=== PATIENT | female | born 1995 | race Caucasian/White ===

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

== ENCOUNTER 2024-09-05 09:30 | Emergency (ER) | payer OTHER, BC ==
[2024-09-05 10:56] VITALS: BP 139/90; PULSE 89
== END 2024-09-05 10:50 | disposition home or self-care (01) ==
LOC: JD.ED 09:30
DX: M25.511 Pain in right shoulder (principal); J45.909 Unspecified asthma, uncomplicated; Z79.899 Other long term (current) drug therapy; V49.3XXA Car occupant (driver) (passenger) injured in unspecified nontraffic accident, initial encounter
CPT/HCPCS: 73030-26-LT; 73030-26-RT; 73030-LT; 73030-RT; 99283; 99284